=== PATIENT | female | born 1975 | race Caucasian/White ===

== ENCOUNTER 2023-12-25 01:01 | Emergency (ER) | payer OTHER ==
[2023-12-25] MEDS ORDERED: Sodium Chloride 0.9% 10 ML Syringe FLUSH PRN (01:08)
[2023-12-25 01:18] LABS: BASOPHILS ABSOLUTE AUTO 0.01 K/uL (0.00-0.20); BASOPHILS PERCENT AUTO 0.2 % (0.0-2.0); EOSINOPHILS ABSOLUTE AUTO 0.07 K/uL (0.00-0.50); EOSINOPHILS PERCENT AUTO 1.5 % (0.0-5.0); HEMATOCRIT 36.6 % (34.0-46.0); LYMPHOCYTES ABSOLUTE AUTO 1.25 K/uL (0.50-3.50); MEAN CORPUSCULAR HEMOGLOBIN 29.1 pg (28.2-33.3); MEAN CORPUSCULAR HGB CONC 32.8 g/dL (31.7-36.0); MEAN CORPUSCULAR VOLUME 88.6 fL (84.0-98.0); MONOCYTES ABSOLUTE AUTO 0.61 K/uL (0.00-1.00); MONOCYTES PERCENT AUTO 12.7 % (2.0-14.0); NEUTROPHILS ABSOLUTE AUTO 2.86 K/uL (1.40-7.00); NEUTROPHILS PERCENT AUTO 59.6 % (45.0-80.0); PLATELET COUNT,PLT 157 K/uL (150-350); RED BLOOD CELL COUNT 4.13 M/uL (3.77-5.09); WHITE BLOOD CELL COUNT,WBC 4.8 K/uL (4.0-10.2)
[2023-12-25] MEDS: Aspirin 81 MG Tab.Chew PO ONE (01:19)
[2023-12-25] MEDS: Diltiazem 25 MG/5 ML SDV IVPUSH ONE (01:20)
[2023-12-25] MEDS: Diltiazem 125 MG in Sodium Chloride 0.9% 100 ML IV SCH (01:54)
[2023-12-25 01:57] LABS: ALBUMIN 3.9 g/dL (3.4-5.0); BILIRUBIN TOTAL 0.3 mg/dL (0.2-1.0); CREATININE 0.75 mg/dL (0.51-1.17); EST CRCL DRUG DOSING (CG) 83.44 mL/min; MAGNESIUM 2.2 mg/dL (1.8-2.4); POTASSIUM,K 3.7 mmol/L (3.5-5.1); PROTEIN TOTAL,TP 7.1 g/dL (6.4-8.2)
[2023-12-25] MEDS: Metoprolol Tartrate 5 MG/5 ML SDV IVPUSH ONE (02:52)
[2023-12-25] MEDS: Metoprolol Tartrate 25 MG Tab PO ONE (04:19)
== END 2023-12-25 04:10 ==
LOC: LL.ED 01:01
DX: I48.91 Unspecified atrial fibrillation (principal); C25.9 Malignant neoplasm of pancreas, unspecified
CPT/HCPCS: 36415; 71045; 80053; 83605; 83735; 83880; 84443; 84484; 85025; 85379; 93005; 96365; 96366; 96375; 96376; 99285; A9270; J3490